=== PATIENT | female | born 1955 | race Caucasian/White ===

== ENCOUNTER 2016-11-25 | Emergency (ER) | payer BC | END 2016-11-25 21:48 | disposition left against medical advice (07) | DX: Z53.21 Procedure and treatment not carried out due to patient leaving prior to being seen by health care provider (principal) ==

== ENCOUNTER → 2016-11-27 | Outpatient (CLI) | payer BC | LOC: RAD 16:08 | DX: M54.5 Low back pain (principal); R52 Pain, unspecified; W19.XXXA Unspecified fall, initial encounter; M47.816 Spondylosis without myelopathy or radiculopathy, lumbar region | CPT/HCPCS: 72100 ==

== ENCOUNTER → 2021-07-04 | Outpatient (CLI) | payer BC | LOC: EXRD 11:57 → MAMO 14:00 | DX: Z12.31 Encounter for screening mammogram for malignant neoplasm of breast (principal); M85.80 Other specified disorders of bone density and structure, unspecified site | CPT/HCPCS: 77063; 77067; 77080 ==

== ENCOUNTER 2021-08-13 10:30 | Inpatient (IN) | payer BC ==
[~2021-08-13] VITALS: Ht 170.2 cm; Wt 132.9 kg
[2021-08-13 11:43] LABS: HEMOGLOBIN 13.7 gm/dl (12.3-15.3); RED BLOOD COUNT 4.48 M/UL (4.00-5.10); WHITE BLOOD COUNT 8.9 K/UL (4.5-11.0)
[2021-08-13 12:02] LABS: BUN/CREATININE RATIO 18 (0-10)
[2021-08-13] MEDS ORDERED: VOLTAREN EC 7575 MG PO (13:56)
[2021-08-13] MEDS ORDERED: FOSAMAX70 MG PO (13:57)
[2021-08-13] MEDS ORDERED: SINGULAIR10 MG PO (13:57)
[2021-08-13] MEDS ORDERED: HYDROCHLOROTHIA25 MG PO (13:57)
[2021-08-13] MEDS ORDERED: XYZAL5 MG PO (13:58)
[2021-08-13] MEDS ORDERED: PREMARIN0.625 MG PO (13:58)
[2021-08-13] MEDS ORDERED: DAILY VALUE1 EACH PO (14:00)
[2021-08-13] MEDS ORDERED: ZINC50 M1 PO (14:02)
[2021-08-13] MEDS ORDERED: IRON PO (14:02)
[2021-08-13] MEDS ORDERED: VITAMIN D3125 MC1 PO (14:03)
[2021-08-14 02:24] LABS: WHITE BLOOD COUNT 9.4 K/UL (4.5-11.0)
[2021-08-14 02:27] LABS: RED BLOOD COUNT 3.98 M/UL (4.00-5.10)
[2021-08-14 02:50] LABS: BUN/CREATININE RATIO 22 (0-10)
[2021-08-14] MEDS ORDERED: AMOX TR-K CLV1 EAC4 PO (11:49)
[2021-08-14] MEDS ORDERED: ASPIRIN EC81 MG PO (11:49)
[2021-08-14] MEDS ORDERED: PACERONE200 MG PO (11:50)
[2021-08-14] MEDS ORDERED: ELIQUIS5 MG PO ×2 (11:50→12:03)
[2021-08-14] MEDS ORDERED: METOPROLOL TART25 MG PO (11:53)
[2021-08-14] MEDS ORDERED: ASPIR-TRIN325 MG PO (12:03)
== END 2021-08-14 18:25 | disposition home or self-care (01) | DRG 309 ==
LOC: ER1 10:30 → PROG CARE 12:33 → CDU 12:33 → PROG CARE 16:31
PROVIDERS: Family Medicine; ADMIT Emergency Medicine
PROC: 5A2204Z Restoration of Cardiac Rhythm, Single (ICD-10-PCS; principal; 2021-08-14)
PROC: B24BZZ4 Ultrasonography of Heart with Aorta, Transesophageal (ICD-10-PCS; 2021-08-14)
DX: I48.91 Unspecified atrial fibrillation (principal); Z68.42 Body mass index [BMI] 45.0-49.9, adult; I45.10 Unspecified right bundle-branch block; G47.33 Obstructive sleep apnea (adult) (pediatric); E66.9 Obesity, unspecified; R19.7 Diarrhea, unspecified; Z20.822 Contact with and (suspected) exposure to COVID-19; J45.909 Unspecified asthma, uncomplicated; M81.0 Age-related osteoporosis without current pathological fracture; I34.0 Nonrheumatic mitral (valve) insufficiency; Z79.01 Long term (current) use of anticoagulants; Z79.82 Long term (current) use of aspirin; Z82.49 Family history of ischemic heart disease and other diseases of the circulatory system; Z83.3 Family history of diabetes mellitus; Z90.49 Acquired absence of other specified parts of digestive tract; Z90.710 Acquired absence of both cervix and uterus; Z85.42 Personal history of malignant neoplasm of other parts of uterus; Z98.84 Bariatric surgery status
CPT/HCPCS: 36415; 71045; 80053; 82550; 82553; 83874; 84439; 84443; 84484; 85025; 85027; 85610; 85730; 92960; 93005; 93320; 96374; 96376; 99285; J0696; J1644; J2250; J3010; U0002

== ENCOUNTER → 2021-11-09 | Outpatient (CLI) | payer BC ==
[~2021-11-09] MED LIST: AMOX TR-K CLV1 EAC4 PO; ASPIR-TRIN325 MG PO; ASPIRIN EC81 MG PO; DAILY VALUE1 EACH PO; ELIQUIS5 MG PO; FOSAMAX70 MG PO; HYDROCHLOROTHIA25 MG PO; IRON PO; METOPROLOL TART25 MG PO; PACERONE200 MG PO; PREMARIN0.625 MG PO; SINGULAIR10 MG PO; VITAMIN D3125 MC1 PO; VOLTAREN EC 7575 MG PO; XYZAL5 MG PO; ZINC50 M1 PO
[2021-11-09 12:42] LABS: HEMOGLOBIN 11.8 gm/dl (12.3-15.3); RED BLOOD COUNT 4.11 M/UL (4.00-5.10); WHITE BLOOD COUNT 5.5 K/UL (4.5-11.0)
[2021-11-09 13:13] LABS: BUN/CREATININE RATIO 20 (0-10)
== END ==
LOC: LAB 11:38
PROVIDERS: Internal Medicine
DX: Z13.1 Encounter for screening for diabetes mellitus (principal); Z51.81 Encounter for therapeutic drug level monitoring; Z13.220 Encounter for screening for lipoid disorders; D51.8 Other vitamin B12 deficiency anemias; E55.9 Vitamin D deficiency, unspecified
CPT/HCPCS: 80053; 80061; 82607; 82746; 83036; 83540; 83550; 84439; 84443; 85025

== ENCOUNTER → 2022-04-03 | Outpatient (CLI) | payer BC | LOC: US 09:38 | DX: R10.11 Right upper quadrant pain (principal); E04.9 Nontoxic goiter, unspecified; Z90.49 Acquired absence of other specified parts of digestive tract | CPT/HCPCS: 76536; 76700 ==

== ENCOUNTER → 2022-04-25 | Outpatient (CLI) | payer BC ==
[2022-04-26 11:14] LABS: HBSAG SCREEN Negative (Negative); HCV AB <0.1 (0.0-0.9); HEP A AB, IGM Negative (Negative); HEP B CORE AB, IGM Negative (Negative)
[2022-04-26 14:11] LABS: MITOCHONDRIAL (M2) ANTIBODY <20.0 Units (0.0-20.0)
[2022-04-27 04:08] LABS: ALPHA-1-ANTITRYPSIN, SERUM 146 mg/dL (101-187)
== END ==
LOC: LAB 10:48
PROVIDERS: Internal Medicine Gastroenterology
DX: R16.0 Hepatomegaly, not elsewhere classified (principal); R79.89 Other specified abnormal findings of blood chemistry; R94.5 Abnormal results of liver function studies
CPT/HCPCS: 36415; 80074; 80076; 82103; 82728; 83516; 83540; 83550; 86038